=== PATIENT | male | born 2000 | race Caucasian/White ===

== ENCOUNTER 2024-07-30 09:06 | Emergency (ER) | payer OTHER, SELFPAY ==
[2024-07-30] VITALS (8 sets, daily range): BP systolic 126–152; BP diastolic 80–103; PULSE 60–80; RESP 16; TEMP 36.6–36.7; O2SAT 96–100
--- NOTE | ~2024-07-30 | XR_ITS ---
EXAMINATION: XR chest 1V portable DATE: 07/30/2024 09:43 INDICATION: Fever and chills. Hypertension. TECHNIQUE: A single frontal view of the chest was obtained. COMPARISON: None. FINDINGS: There is no pneumonia, pleural effusion, or pneumothorax. The heart size is normal. IMPRESSION: 1. No acute cardiopulmonary disease. Reviewed, dictated and finalized at location B. TH CLINICIAN
[2024-07-30 09:12] LABS: Glucose Point of Care 109 mg/dl (65-105)
--- NOTE | 2024-07-30 09:26 | ECG_ITS ---
Test Date: 2024-07-30 09:43:11 Measurements Intervals [place] Rate: 59 P: 1 [place]: 126 QRS: 81 QRSD: 93 T: 68 QT: 387 QTc: 386 Interpretive Statements SINUS BRADYCARDIA ST ELEV, PROBABLE NORMAL EARLY REPOL PATTERN No previous ECG available for comparison Electronically Signed On 07-30-2024 18:04:18 [place] TANNER by Chris Smith M.D.
--- NOTE | 2024-07-30 09:40 | ED_ITS ---
HPI - Dizziness General Chief Complaint: Dizziness Stated Complaint: Light Headed Time Seen by Provider: 07/30/24 09:26 Source: patient Mode of arrival: ambulatory Limitations: no limitations History of Present Illness HPI Narrative: patient is a 23-year-old male with a significant past medical history that presents today for lightheadedness and numbness and tingling. Patient states that he has had some high blood pressure readings lately and he says that he thinks his blood pressure was high this morning he could feel like it was high and he was driving and started having some numbness and tingling in his hands. He says that he did not eat breakfast but vaped nicotine and had an energy drink. He denies any chest pain or shortness of breath. He denies any other symptoms besides just the lightheadedness and numbness and tingling. MD elicited complaint: dizziness and lightheadedness Onset (ago): hour(s) Timing: sudden onset Severity: mild Description: lightheadedness History of similar symptoms: No Exacerbating factors: nothing Relieving factors: nothing Related Data Allergies Allergy/AdvReac Type Severity Reaction Status Date / Time Penicillins Allergy Unknown Unknown Verified 07/30/24 09:14 Review of Systems 2 Review of Systems: All systems reviewed & are unremarkable except as noted in HPI and below Constitutional: Constitutional: Reports as per HPI Eyes: Eyes: Reports no additional eye complaints ENT: Reports system reviewed and no additional complaints, except as documented Cardiovascular: Cardiovascular: Reports no additional cardiovascular complaints Respiratory: Respiratory: Reports no additional respiratory complaints Gastrointestinal: Gastrointestinal: Reports no additional gastrointestinal complaints Genitourinary: Genitourinary: Reports no additional male genitourinary complaints Musculoskeletal: Musculoskeletal: Reports no additional musculoskeletal complaints Integumentary/Breasts: Skin/Breast: Reports system reviewed and no additional complaints, except as docu Neurologic: Reports as per HPI, Reports dizziness and Reports numbness Psychiatric: Psychiatric: Reports no additional psychiatric complaints Endocrine: Endocrine: Reports no additional endocrine complaints Hematologic/Lymphatic: Hematologic/Lymphatic: Reports no additional hematologic/lymphatic complaints Allergic/Immunologic: Allergic/Immunologic: Reports no additional allergic/immunologic complaints Exam 2 Const: General: healthy appearing Nutritional Appearance: well nourished Orientation/consciousness: patient oriented x3 HENMT: Head: normal to inspection Ears: TM's normal bilaterally F will/Nose/Sinus: Normal external nose present Face and sinus: normal facial exam Eyes: Conjunctivae: conjunctivae normal Pupils: Equal, round and reactive pupils present EOM: EOMs intact bilaterally Neck: Neck: normal visual inspection Chest: Chest palpation & inspection: normal inspection of the chest Resp: Effort & Inspection: normal respiratory effort Auscultation: clear to auscultation bilaterally Cardio: Rate: regular rate Rhythm: regular rhythm Heart sounds: Murmur heart sound present GI: GI Palp: Yes Soft to palpation Back/Spine/Pelvis: Back: no CVA tenderness Skin: General skin exam: normal color Rashes: no rashes Wounds: no wounds Neuro: General: patient oriented x3 Cranial nerves: Yes Nystagmus not present Speech: normal speech Extrem: General: normal to inspection Psych: Mental Status: mental status grossly normal Course Vital Signs Vital signs: Vital Signs Temperature 98.1 F 07/30/24 09:06 Pulse Rate 80 07/30/24 09:06 Respiratory Rate 16 07/30/24 09:06 Blood Pressure 152/103 H 07/30/24 09:06 Pulse Oximetry 100 07/30/24 09:06 Oxygen Delivery Room Air 07/30/24 09:06 Temperature 98.1 F 07/30/24 09:06 Pulse Rate 80 07/30/24 09:06 Respiratory Rate 16 07/30/24 09:06 Blood Pressure 152/103 H 07/30/24 09:06 Pulse Oximetry 100 07/30/24 09:06 Oxygen Delivery Room Air 07/30/24 09:06 MDM - Dizziness MDM Narrative Medical decision making narrative: Patient was driving and had some numbness and tingling and just feel weird but felt like his blood pressure was high. He said he has had high blood pressure in the past this is how he has felt that time when he had high blood pressure 2. His blood pressure was high when he was 1st seen here in the ED 152/103. But has remained around that but got a little bit lower since he has been here. He most likely has high blood pressure and might need to go on medication for. I discussed with him he needs to take his blood pressure in the morning and afternoon write down the readings for 1 week and then bring this to a PCP and see if he needs to go on blood pressure medications. The symptoms were most likely caused by high blood pressure and his blood pressure was probably extremely high when he had the symptoms because he had the nicotine and drinking energy drink this morning for breakfast Differential Diagnosis Differential diagnosis: Likely other ( hypertension) Medical Records Attestation: I reviewed the patient's medical records. Lab Data Attestation: I reviewed the patient's lab results. 07/30/24 09:37 07/30/24 09:37 Labs: Lab Results 07/30/24 07/30/24 07/30/24 Range/Units 09:09 09:26 09:37 WBC 5.2 (4.8-10.8) K/mm3 RBC 4.74 (4.70-6.10) M/mm3 Hgb 14.1 (14.0-18.0) g/dL Hct 41.6 (40.0-54.0) % MCV 87.8 (78.0-102.0) fL MCH 29.7 (27.0-31.0) pg MCHC 33.9 (32-36) g/dL RDW 11.8 (11.6-14.4) % Plt Count 221 (150-420) K/mm3 MPV 10.0 (8.7-11.0) fl Immature Gran % (Auto) 0.4 H (0.0-0.0) % Neut % (Auto) 63.6 (50.0-70.0) % Lymph % (Auto) 23.4 (18.0-42.0) % [place] % (Auto) 12.0 H (2.0-11.0) % Eos % (Auto) 0.2 L (1.0-6.0) % Baso % (Auto) 0.4 (0.0-1.0) % Lymph # (Auto) 1.21 (1.10-4.50) K/mm3 [place] # (Auto) 0.62 (0.10-0.90) K/mm3 Eos # (Auto) 0.01 L (0.02-0.50) K/mm3 Baso # (Auto) 0.02 (0.00-0.10) K/mm3 Abs Immat Gran (auto) 0.02 H (0.00-0.00) K/mm3 Absolute Neuts (auto) 3.28 (1.70-7.20) K/mm3 Absolute Nucleated RBC 0.00 (0.00-0.00) K/mm3 Nucleated RBC % 0.0 (0-0.0) % Sodium 139 (136-145) mmol/L Potassium 3.9 (3.5-5.1) mmol/L Chloride 101 (98-108) mmol/L Carbon Dioxide 26 (21-32) mmol/L Anion Gap 12 (4-12) mmol/L BUN 13 (7-18) mg/dL Creatinine 1.26 (0.70-1.30) mg/dL Estim Creat Clear Calc 85 ml/min Estimated GFR > 60 (59 - ) Glucose 114 H (70-99) mg/dL POC Capillary Glucose 109 H (65-105) mg/dl Calculated Osmolality 289 (285-295) mOsm/kg Calcium 9.4 (8.5-10.1) mg/dL Total Bilirubin 0.7 (0.00-1.00) mg/dL AST 13 L (15-37) U/L ALT 25 (16-63) U/L Alkaline Phosphatase 78 (46-116) U/L Troponin I < 4.0 (0.00-60.4) ng/L NT-Pro-B Natriuret Pep 13 (0-125) pg/mL Total Protein 7.2 (6.4-8.2) g/dL Albumin 4.5 (3.4-5.0) g/dL Urine Color Light yellow (Yellow) Urine Appearance Clear (Clear) Urine pH 6.5 (5.0-8.0) Ur Specific [place] 1.010 (1.010-1.020) Urine Protein Negative (Negative) Urine Glucose (UA) Negative (Negative) Urine Ketones 1+ H (Negative) Ur Blood (Man) Negative (Negative) Urine Nitrate Negative (Negative) Urine Bilirubin Negative (Negative) Urine Urobilinogen 0.2 (0.2-1.0) mg/dL Leukocyte Esterase Rfl Negative (Negative) GERARD/UL ABG Data Attestation: I personally reviewed and interpreted this ABG as follows: Imaging Data Attestation: I personally reviewed and interpreted this imaging study as follows: Discharge Plan Discharge Clinical Impression: Hypertension, Light-headedness Patient Disposition: Home, Self-Care Condition: Stable Instructions: Hypertension (ED) Additional Instructions: check blood pressure twice a day once in the morning once the afternoon and write these numbers down for 1 week. Take these numbers and readings to a primary care physician and fine now if you will need to be put on blood pressure medication or not. Patient Language: [place]ian Follow-up/Referrals: UNKNOWN,DOCTOR [Primary Care Provider] - Time of Disposition: 10:18
[2024-07-30 09:41] LABS: Basophils Absolute Auto 0.02 K/mm3 (0.00-0.10); Basophils Percent Auto 0.4 % (0.0-1.0); Eosinophils Absolute Auto 0.01 K/mm3 (0.02-0.50); Eosinophils Percent Auto 0.2 % (1.0-6.0); Hematocrit 41.6 % (40.0-54.0); Hemoglobin 14.1 g/dL (14.0-18.0); Immature Granulocyte Absolute 0.02 K/mm3 (0.00-0.00); Immature Granulocyte Percent A 0.4 % (0.0-0.0); Lymphocytes Absolute Auto 1.21 K/mm3 (1.10-4.50); Lymphocytes Percent Auto 23.4 % (18.0-42.0); Mean Corpuscular HGB Conc 33.9 g/dL (32-36); Mean Corpuscular Hemoglobin 29.7 pg (27.0-31.0); Mean Corpuscular Volume 87.8 fL (78.0-102.0); Monocytes Absolute Auto 0.62 K/mm3 (0.10-0.90); Neutrophils Absolute Auto 3.28 K/mm3 (1.70-7.20); Neutrophils Percent Auto 63.6 % (50.0-70.0); Platelet Count Result 221 K/mm3 (150-420); Red Blood Count 4.74 M/mm3 (4.70-6.10); Red Cell Distribution Width 11.8 % (11.6-14.4); White Blood Count 5.2 K/mm3 (4.8-10.8)
[2024-07-30 09:58] LABS: Add Urine Microscopic? NO; Appearance Urine Clear (Clear); Bilirubin Urine Negative (Negative); Blood Urine Negative (Negative); Color Urine Light Yellow (Yellow); Glucose Urine UA Negative (Negative); Ketones Urine 1+ (Negative); Leukocyte Esterase Ur Negative LEU/UL (Negative); Nitrate Urine Negative (Negative); Protein Urine Negative (Negative); Urobilinogen Urine 0.2 mg/dL (0.2-1.0); pH Urine 6.5 (5.0-8.0)
[2024-07-30 10:07] LABS: Alanine Aminotransferase 25 U/L (16-63); Albumin Level 4.5 g/dL (3.4-5.0); Alkaline Phosphatase 78 U/L (46-116); Anion Gap 12 mmol/L (4-12); Aspartate Amino Transferase 13 U/L (15-37); Bilirubin,Total 0.7 mg/dL (0.00-1.00); Blood Urea Nitrogen 13 mg/dL (7-18); Calcium 9.4 mg/dL (8.5-10.1); Carbon Dioxide 26 mmol/L (21-32); Chloride 101 mmol/L (98-108); Estimated CRCL calculation 85 ml/min; Estimated Glomerular Filt Rate > 60; Glucose 114 mg/dL (70-99); NT Pro B Type Natriuretic Pept 13 pg/mL (0-125); Osmolality Calculated 289 mOsm/kg (285-295); Potassium 3.9 mmol/L (3.5-5.1); Sodium 139 mmol/L (136-145); Total Protein 7.2 g/dL (6.4-8.2)
[2024-07-30 10:09] LABS: Troponin I < 4.0 ng/L (0.00-60.4)
--- NOTE | 2024-07-30 10:13 | PC.NURSE ---
PT IS SITTING ON STRETCHER AWAITING RESULTS AT THIS TIME. MOTHER EN ROUTE TO ER. PT DENIES ANY NEEDS OR COMPLAINTS, WATER WAS PROVIDED. VSS PER MONITOR. NAD NOTED. WILL CONTINUE TO MONITOR. PT HAS BEEN UPDATED ON STATUS, CO WORKERS HAVE LEFT.
--- NOTE | 2024-07-30 10:30 | PC.NURSE ---
PT REPORTS SYMPTOMS HAVE IMPROVED, IS TALKING ON CELL PHONE IN EXAM ROOM WITHOUT DIFFICULTY. PT IS AWAITING ON ARRIVAL OF MOTHER FOR DC HOME. NAD NOTED. VSS. WILL CONTINUE TO MONITOR.
== END 2024-07-30 10:35 | disposition home or self-care (01) ==
PROVIDERS: Emergency Provider Family Medicine
DX: I10 Essential (primary) hypertension (principal)
CPT/HCPCS: 36415; 71045; 80053; 81003; 82948; 83880; 84484; 85025; 93005; 99284